=== PATIENT | male | born 1985 | race Caucasian/White ===

== ENCOUNTER 2018-03-26 23:04 | Emergency (ER) | payer SELFPAY | END 2018-03-27 02:30 | disposition left against medical advice (07) | LOC: FTE 23:04 | DX: Z53.21 Procedure and treatment not carried out due to patient leaving prior to being seen by health care provider (principal) ==

== ENCOUNTER 2018-12-06 14:28 | Emergency (ER) | payer MEDICAID, OTHER ==
[2018-12-06] MEDS: DEXAMETHASONE 10 MG/ML 1 ML INJ IM (17:09)
[2018-12-06] MEDS: KETOROLAC 30 MG INJ IM (17:10)
== END 2018-12-06 17:24 | disposition home or self-care (01) ==
LOC: FTE 14:28
DX: M54.5 Low back pain (principal)
CPT/HCPCS: 96372; 99284-25